=== PATIENT | female | born 1965 | race Hispanic/Latino ===

== ENCOUNTER 2017-05-24 00:05 | Observation (INO) | payer BC ==
[~2017-05-24] VITALS: Ht 160 cm; Wt 74.8 kg
[2017-05-24] MEDS ORDERED: SODIUM CHLORIDE 0.9% 1000ML 1,000 ML IV STA (00:24)
[2017-05-24] MEDS ORDERED: METOPROLOL TARTRATE INJ 1 MG/ML VIAL IV ONE (00:30)
[2017-05-24] MEDS ORDERED: METOPROLOL TARTRATE 25 MG TAB PO ONE (00:30)
[2017-05-24 01:14] LABS: BASOPHILS # (AUTO) 0.1 (0.0-0.1); BASOPHILS % 0.9 % (0.0-1.0); BILIRUBIN,URINE NEGATIVE (NEGATIVE); EOSINOPHILS # (AUTO) 0.2 (0.0-0.4); EOSINOPHILS % 1.9 % (0.0-6.0); HEMATOCRIT 46.1 % (34.2-44.1); HEMOGLOBIN 15.1 g/dL (12.0-16.0); KETONES,URINE NEGATIVE (NEGATIVE); LEUKOCYTE ESTERASE ,URINE TRACE (NEGATIVE); LYMPHOCYTES # (AUTO) 2.8 (1.0-3.2); LYMPHOCYTES % 35.8 % (18.0-39.1); MEAN CORPUSCULAR HEMOGLOBIN 27.1 pg (28-32); MEAN CORPUSCULAR HGB CONC 32.8 g/dL (31-35); MEAN CORPUSCULAR VOLUME 82.6 fL (81-99); MONOCYTES # (AUTO) 0.6 (0.2-0.8); NEUTROPHILS # (AUTO) 4.2 (2.1-6.9); NEUTROPHILS % 53.1 % (38.7-80.0); NITRITE,URINE NEGATIVE (NEGATIVE); PLATELET COUNT 242 x10e3/uL (140-360); PROTEIN,URINE DIPSTICK NEGATIVE (NEGATIVE); RED BLOOD COUNT 5.58 x10e6/uL (3.6-5.1); RED CELL DISTRIBUTION WIDTH 13.2 % (11.7-14.4); URINE UROBILINOGEN 0.2 mg/dL (0.2 - 1)
[2017-05-24 01:15] LABS: CLARITY,URINE CLEAR (CLEAR); COLOR,URINE YELLOW (YELLOW)
--- NOTE | 2017-05-24 01:17 | Diagnostic Imaging Report ---
EXAM: CHEST 2 VIEWS, PA and lateral DATE: 05/24/2017 12:24 AM Time stamp on exam: 0101 hours INDICATION: Chest pain, palpitations COMPARISON: None FINDINGS: LINES/TUBES: None LUNGS: No consolidations or edema. PLEURA: No effusions or pneumothorax. HEART AND MEDIASTINUM: Normal size and contour. BONES AND SOFT TISSUES: No acute findings. IMPRESSION: No acute thoracic abnormality. Signed by: Dr. Sara Chase M.D. on 05/24/2017 1:13 AM
[2017-05-24 01:23] LABS: INR 0.8; PROTHROMBIN TIME 11.5 seconds (11.9-14.5)
[2017-05-24 01:25] LABS: BACTERIA,URINE FEW /HPF; EPITHELIAL CELLS,URINE RARE /LPF; RBC,URINE 0-5 /HPF (0-5)
[2017-05-24 01:33] LABS: ALANINE AMINOTRANSFERASE 33 IU/L (0-55); ALBUMIN 4.2 g/dL (3.5-5.0); ALKALINE PHOSPHATASE 139 IU/L (40-150); ANION GAP 14.8 mmol/L (8-16); BLOOD UREA NITROGEN 9 mg/dL (7-26); BUN/CREATININE RATIO 11 (6-25); CALCIUM 9.1 mg/dL (8.4-10.2); CARBON DIOXIDE 23 mmol/L (22-29); CHLORIDE 102 mmol/L (98-107); CREATINE KINASE 121 IU/L (29-168); CREATININE, SERUM 0.82 mg/dL (0.57-1.11); EST GLOMERULAR FILTRATION RATE > 60 ML/MIN (60-); GLUCOSE 157 mg/dL (74-118); MAGNESIUM 2.3 MG/DL (1.3-2.1); SODIUM 137 mmol/L (136-145)
[2017-05-24 01:38] LABS: POTASSIUM 2.8 mmol/L (3.5-5.1)
[2017-05-24] MEDS ORDERED: POTASSIUM CHLORIDE 20 MEQ TAB CR PO STA (01:44)
[2017-05-24] MEDS ORDERED: KCL 20MEQ/.9 SOD CHL 1,000 ML IV ONE (01:45)
[2017-05-24] MEDS ORDERED: SODIUM CHLORIDE 0.9% 50ML 50 ML ONE (01:49)
[2017-05-24] MEDS ORDERED: IOPAMIDOL 370 MG/ML 200 ML INFUS..BTL INJ ONE (01:49)
[2017-05-24 01:53] LABS: TROPONIN I 0.008 ng/mL (0-0.300)
--- NOTE | 2017-05-24 02:35 | Diagnostic Imaging Report ---
EXAM: CT CHEST W DATE: 05/24/2017 1:33 AM Time stamp on exam: 0156 hours INDICATION: Tachycardia, chest pain COMPARISON: None TECHNIQUE: Multidetector CT scanning of the chest was performed. Coronal and sagittal multiplanar reformations were obtained. PE protocol performed. IV Contrast: 60 cc Isovue-370 CTDIvol has been reviewed. It is below the limits set by the Radiation Protocol Committee (RPC). FINDINGS: LUNGS AND AIRWAYS: The trachea and major bronchi are unremarkable. No consolidations or edema. PLEURA: No effusions or pneumothorax. HEART, MEDIASTINUM, VESSELS: Normal appearance. No evidence of a pulmonary embolism. UPPER ABDOMEN: Incidental gallstone. MUSCULOSKELETAL: Several nonspecific bilateral well-circumscribed breast nodules. For example: * Oval 8 mm nodule in the left upper breast. * Peripherally calcified 1 cm nodule in the left lateral breast. * Partially visualized 1 cm oval nodule in the posterior lateral right breast. * Nonspecific 6 mm nodule in the middle of the right breast. * Oval 1 cm nodule medial aspect of the left breast. Given there multiplicity and bilaterality, these are likely benign and intramammary lymph nodes. No suspicious bone lesions. IMPRESSION: No evidence of a pulmonary embolism. No acute thoracic abnormality. Signed by: Dr. Sara Chase M.D. on 05/24/2017 2:31 AM
[2017-05-24] MEDS ORDERED: CEFTRIAXONE SOD 1 GM VIAL IV SCH (04:00)
[2017-05-24] MEDS ORDERED: ONDANSETRON HCL INJ 2 MG/ML VIAL IV PRN (04:15)
[2017-05-24] MEDS ORDERED: POTASSIUM CHLORIDE 20MEQ/15ML UDC PO ONE (05:45)
[2017-05-24] MEDS ORDERED: POTASSIUM CHLORIDE 20 MEQ TAB CR PO ONE (06:00)
[2017-05-24 08:16] LABS: BASOPHILS # (AUTO) 0.1 (0.0-0.1); BASOPHILS % 0.7 % (0.0-1.0); EOSINOPHILS # (AUTO) 0.1 (0.0-0.4); EOSINOPHILS % 1.2 % (0.0-6.0); HEMOGLOBIN 13.9 g/dL (12.0-16.0); LYMPHOCYTES # (AUTO) 1.8 (1.0-3.2); LYMPHOCYTES % 26.9 % (18.0-39.1); MEAN CORPUSCULAR HEMOGLOBIN 27.4 pg (28-32); MEAN CORPUSCULAR HGB CONC 33.1 g/dL (31-35); MEAN CORPUSCULAR VOLUME 82.8 fL (81-99); MONOCYTES # (AUTO) 0.5 (0.2-0.8); MONOCYTES % 8.1 % (4.4-11.3); NEUTROPHILS # (AUTO) 4.2 (2.1-6.9); PLATELET COUNT 255 x10e3/uL (140-360); RED BLOOD COUNT 5.07 x10e6/uL (3.6-5.1); RED CELL DISTRIBUTION WIDTH 13.2 % (11.7-14.4)
[2017-05-24 08:35] LABS: TROPONIN I 0.001 ng/mL (0-0.300)
[2017-05-24 08:40] LABS: ANION GAP 11.1 mmol/L (8-16); BLOOD UREA NITROGEN 5 mg/dL (7-26); BUN/CREATININE RATIO 7 (6-25); CALCIUM 8.1 mg/dL (8.4-10.2); CARBON DIOXIDE 23 mmol/L (22-29); CHLORIDE 111 mmol/L (98-107); CREATININE, SERUM 0.67 mg/dL (0.57-1.11); EST GLOMERULAR FILTRATION RATE > 60 ML/MIN (60-); GLUCOSE 109 mg/dL (74-118); POTASSIUM 4.1 mmol/L (3.5-5.1); SODIUM 141 mmol/L (136-145)
[2017-05-24] MEDS ORDERED: AMLODIPINE BESYLATE 10 MG TAB PO SCH (09:00)
[2017-05-24] MEDS ORDERED: ASPIRIN 81 MG ENTERIC COATED PO SCH (09:00)
[2017-05-24] MEDS ORDERED: FAMOTIDINE 20 MG/2 ML VIAL IV SCH (09:00)
[2017-05-24] MEDS: METOPROLOL TARTRATE 25 MG TAB PO SCH ×2 (09:35→16:43)
[2017-05-24] MEDS: FAMOTIDINE 20 MG TAB PO SCH ×2 (09:35→16:43)
[2017-05-24] MEDS ORDERED: AMLODIPINE BESY10 MG PO (09:41)
[2017-05-24 14:50] VITALS: BP 140/80
[2017-05-24 14:54] VITALS: BP 140/80
[2017-05-24 17:18] LABS: CREATINE KINASE MB 0.8 ng/mL (0.00-5.00); TROPONIN I 0.007 ng/mL (0-0.300)
[2017-05-24] MEDS ORDERED: POTASSIUM CHLO20 ME1 PO (18:56)
[2017-05-24] MEDS ORDERED: PEPCID20 MG PO (18:56)
[2017-05-24] MEDS ORDERED: HYDROCHLOROTHIA25 MG PO (18:56)
[2017-05-24] MEDS ORDERED: METOPROLOL TART25 MG PO (18:56)
[2017-05-24 19:45] VITALS: BP 126/65
--- NOTE | 2017-05-24 20:47 | History and Physical ---
SHORTSTAY SUMMARY PRIMARY CARE PROVIDER: Dr. Hernandez at the [facility]. ADMITTING DIAGNOSES 1. Chest pain. 2. Palpitations. 3. Hypokalemia. 4. Hypertension. 5. History of colon cancer. DISCHARGE DIAGNOSES 1. Chest pain. 2. Palpitations. 3. Hypokalemia. 4. Hypertension. 5. History of colon cancer. 6. Myocardial infarction ruled out. BRIEF HISTORY: Ms. Doyle is a 52-year-old lady presenting with 1 day of chest pain and palpitations and uncomfortable feeling in her chest with the palpitations with some shortness of breath and some dizziness and lightheaded associated with the palpitations as well, lasting one day. She denies diaphoresis or loss of consciousness. REVIEW OF SYSTEMS: She denies fever, chills or weight loss. She denies sinus congestion or sore throat. She had chest discomfort and palpitations as noted. She had some shortness of breath as noted as well. She denies wheezing or cough. She denies abdominal pain, nausea, vomiting or melena. She denied dysuria or flank pain. Denies rash or pruritus. Denies joint pain or swelling. She denies bleeding or bruising. She denies headache, vertigo or loss of consciousness. She did have some lightheadedness and dizzy feeling. She denied depression, agitation, homicidal or suicidal ideation. PAST MEDICAL HISTORY: Significant for longstanding hypertension, or actually she was diagnosed a couple years ago and started on amlodipine 10 mg daily, which is her only medication. She also has a history of colon cancer and has had a partial colon resection and colostomy formation about 12 years ago. ALLERGIES: NO KNOWN DRUG ALLERGIES. FAMILY HISTORY: Significant for hypertension. SOCIAL HISTORY: The patient is but she is bilingual, speaks good Upper Sorbian. She is . Her is here with her. She does not smoke, drink or use illegal drugs. She is generally independently functioning. PHYSICAL EXAM: PSYCHIATRIC: She is alert and oriented times 3 with normal mood and affect. CONSTITUTIONAL: She has a normal body habitus. Is in no acute distress. VITAL SIGNS: Blood pressure 140/80. Pulse 83 and regular. Respiratory rate 20. O2 sat 97% on room air. Temperature 97.5. HEENT: Head is atraumatic. Eyes are anicteric with clear conjunctivae. Ears and nares are without erythema or discharge. Oropharynx is clear. NECK: Is supple with no mass or thyromegaly. LYMPHATIC SYSTEM: She has no palpable cervical, axillary or inguinal adenopathy. CARDIOVASCULAR: Her heart has a regular rate and rhythm without murmurs or extra heart sounds. She has no carotid bruit. She has no peripheral edema. She has weak dorsal pedal pulses. RESPIRATORY: Clear to auscultation and percussion with normal respiratory effort. GASTROINTESTINAL: Abdomen is soft without organomegaly, masses or tenderness. Normal bowel sounds present. She has a colostomy in place that is functioning well. CUTANEOUS: Her skin is warm and dry to touch with no rash or skin breakdown. MUSCULOSKELETAL: Joints are normal alignment without erythema or swelling. Has no calf tenderness. NEUROLOGIC: Exam is nonfocal with intact cranial nerves and no motor or sensory deficits. DIAGNOSTIC STUDIES: Chest x-ray shows no acute disease. CT of the chest also no acute disease, no evidence of pulmonary edema that was done for an elevated D-dimer. Her echocardiogram shows LVH and ejection fraction of 62%. Hemoglobin A1c level 5.6. Troponin 0.008, 0.001, 0.007. BNP less than 10. CBC shows a white count 7.83 with normal differential. Hemoglobin 15.1, hematocrit 46.1 and platelet count of 242,000. Chemistry shows normal electrolytes except potassium of 2.8. CO2 is 23. Glucose 157. Creatinine 0.82. BUN 9 for normal GFR. Calcium 9.1. Magnesium 2.3. TSH is 2.140. Transaminases, bilirubin and alkaline phos are normal. Coags are normal. IMPRESSION AND PLAN 1. Chest pain, rule out acute coronary syndrome. Serial cardiac enzymes are negative so far. EKG is not exactly normal but does not show any acute ischemic changes. 2. Hypokalemia which has resolved and corrected with p.o. potassium. 3. Palpitations which are better now after starting metoprolol yesterday. 4. Hypertension, also better with the addition of metoprolol.. The patient remains on amlodipine which she states causes some ankle swelling at the end of the day and so will add hydrochlorothiazide and will schedule potassium chloride for the patient to take to prevent hypokalemia again. 5. For prophylaxis the patient is on Pepcid for GI prophylaxis. HOSPITAL COURSE: Patient was admitted to the floor for observation and serial cardiac enzymes negative for myocardial injury. Patient was feeling better at the time of discharge and she was sent home to resume her amlodipine with the addition of metoprolol 25 twice a day, hydrochlorothiazide 25 daily. Potassium 20 mEq daily and Pepcid 20 mg twice daily before meals. The patient will resume a regular diet and activity as tolerated and follow up with her primary care provider within 2 weeks. Job#: [id number]
== END 2017-05-24 19:49 | disposition home or self-care (01) ==
LOC: ER 00:05 → ERHOLD 05:09 → IMCU 13:25
PROVIDERS: ADMIT Internal Medicine; ATTEND Internal Medicine
DX: R07.89 Other chest pain (principal); R00.2 Palpitations; E87.6 Hypokalemia; I10 Essential (primary) hypertension; Z85.038 Personal history of other malignant neoplasm of large intestine
CPT/HCPCS: 36415; 71020; 71260; 80048; 80053; 81001; 82550; 82553; 83036; 83735; 83880; 84443; 84484; 85025; 85379; 85610; 85730; 87086; 93005; 93306; 99284; G0378; J7030; Q9967; 71046

== ENCOUNTER 2018-02-02 13:11 | Observation (INO) | payer BC ==
[~2018-02-02] VITALS: Ht 160 cm; Wt 74.0 kg
[~2018-02-02 13:11] MED LIST: AMLODIPINE BESY10 MG PO; HYDROCHLOROTHIA25 MG PO; METOPROLOL TART25 MG PO; PEPCID20 MG PO; POTASSIUM CHLO20 ME1 PO
[2018-02-02] MEDS ORDERED: ASPIRIN 81 MG CHEW TAB PO ONE (13:30)
[2018-02-02 14:08] LABS: BASOPHILS # (AUTO) 0.1 (0.0-0.1); EOSINOPHILS # (AUTO) 0.1 (0.0-0.4); EOSINOPHILS % 1.1 % (0.0-6.0); HEMOGLOBIN 14.7 g/dL (12.0-16.0); LYMPHOCYTES # (AUTO) 1.3 (1.0-3.2); LYMPHOCYTES % 24.3 % (18.0-39.1); MEAN CORPUSCULAR HEMOGLOBIN 27.4 pg (28-32); MEAN CORPUSCULAR HGB CONC 33.4 g/dL (31-35); MEAN CORPUSCULAR VOLUME 82.1 fL (81-99); MONOCYTES # (AUTO) 0.5 (0.2-0.8); MONOCYTES % 8.6 % (4.4-11.3); NEUTROPHILS # (AUTO) 3.4 (2.1-6.9); NEUTROPHILS % 64.6 % (38.7-80.0); PLATELET COUNT 272 x10e3/uL (140-360); RED BLOOD COUNT 5.36 x10e6/uL (3.6-5.1); RED CELL DISTRIBUTION WIDTH 13.2 % (11.7-14.4)
--- NOTE | 2018-02-02 14:11 | Diagnostic Imaging Report ---
EXAMINATION: CHEST SINGLE (PORTABLE) INDICATION: High blood pressure. Chest pressure COMPARISON: May 24, 2017 FINDINGS: TUBES and LINES: None. LUNGS: Lungs are well inflated. Lungs are clear. There is no evidence of pneumonia or pulmonary edema. PLEURA: No pleural effusion or pneumothorax. HEART AND MEDIASTINUM: The cardiomediastinal silhouette is unremarkable. BONES AND SOFT TISSUES: No acute osseous lesion. Soft tissues are unremarkable. UPPER ABDOMEN: No free air under the diaphragm. IMPRESSION: No acute thoracic abnormality. Signed by: Dr. Jakob Layton M.D. on 02/02/2018 2:08 PM
[2018-02-02] MEDS ORDERED: CETIRIZINE HCL10 MG PO (14:15)
[2018-02-02] MEDS ORDERED: XYZAL5 MG PO (14:15)
[2018-02-02 14:22] LABS: INR 0.8; PROTHROMBIN TIME 11.9 seconds (11.9-14.5)
[2018-02-02 14:30] LABS: ALANINE AMINOTRANSFERASE 39 IU/L (0-55); ALBUMIN 4.1 g/dL (3.5-5.0); ALBUMIN/GLOBULIN RATIO 1.1 (0.8-2.0); ALKALINE PHOSPHATASE 114 IU/L (40-150); ANION GAP 14.1 mmol/L (8-16); BLOOD UREA NITROGEN 9 mg/dL (7-26); BUN/CREATININE RATIO 13 (6-25); CALCIUM 9.3 mg/dL (8.4-10.2); CARBON DIOXIDE 25 mmol/L (22-29); CHLORIDE 103 mmol/L (98-107); CREATINE KINASE 94 IU/L (29-168); CREATININE, SERUM 0.72 mg/dL (0.57-1.11); EST GLOMERULAR FILTRATION RATE > 60 ML/MIN (60-); GLUCOSE 113 mg/dL (74-118); POTASSIUM 3.1 mmol/L (3.5-5.1); SODIUM 139 mmol/L (136-145)
[2018-02-02 17:35] VITALS: BP 126/71
[2018-02-02 17:38] VITALS: BP 126/71
[2018-02-02 17:51] VITALS: BP 126/71
[2018-02-02 20:07] VITALS: BP 113/64
[2018-02-02 22:22] VITALS: BP 113/64
[2018-02-03] VITALS: BP 118/64
--- NOTE | 2018-02-03 01:03 | Consultation ---
DATE OF CONSULTATION: February 02, 2018 CARDIOLOGY CONSULTATION REASON FOR CONSULTATION: Chest pain. HISTORY OF PRESENT ILLNESS: This is a 53-year-old woman with history of hypertension and stage-II colorectal cancer, status post partial colectomy with colostomy and chemotherapy and radiation, who presents with complaints of chest tightness and shortness of breath. She reports she began feeling off on Tuesday. She described chest tightness associated with shortness of breath starting this time, as well the pain was 1-2/10 in severity and it occurred intermittently. She denies any palpitations, radiation, nausea or diaphoresis. She has not had any orthopnea or PND, but does endorse left lower extremity swelling for approximately the last month. The patient continued to have symptoms. Today, when she checked her blood pressure, she noted that her blood pressure was in the 190s-200s systolic. On calling her PCP, she was instructed to present to the emergency room for further evaluation. REVIEW OF SYSTEMS: Negative except as per HPI. PAST MEDICAL HISTORY 1. Hypertension. 2. Stage-II colorectal cancer, status post partial colectomy with colostomy, chemotherapy, and radiation. 3. Sleep apnea. PAST SURGICAL HISTORY: As above. ALLERGIES: NO KNOWN DRUG ALLERGIES. MEDICATIONS: Please see medication list. SOCIAL HISTORY: Denies tobacco, alcohol or illicit drugs. FAMILY HISTORY: Denies family history of heart disease. PHYSICAL EXAM VITAL SIGNS: Temperature 98.4 degrees, pulse 77, respiratory rate 20, blood pressure 113/54, oxygen saturation 98% on 2 L nasal cannula. GENERAL: Well-developed, well-nourished woman, no acute distress. HEENT: Normocephalic, atraumatic. Pupils equal. No scleral icterus. NECK: Supple. No thyromegaly or cervical lymphadenopathy, no carotid bruits. LUNGS: Clear to auscultation bilaterally. No wheezes or crackles. CARDIOVASCULAR: Normal rate, regular rhythm. No murmur. Normal S1, S2. ABDOMEN: Soft, nontender. EXTREMITIES: No edema. LABS: WBC 5.26, hemoglobin 14.7, hematocrit 44, platelets 272,000. Sodium 139, potassium 3.1, chloride 103, CO2 25, BUN 9, creatinine 0.72. Troponin less than 0.001. BNP 13.4. CHEST X-RAY: No acute thoracic abnormality. EKG: Normal sinus rhythm. Right superior axis deviation pulmonary disease pattern. Right ventricular hypertrophy. IMPRESSIONS 1. Chest pain. 2. Dyspnea. 3. Hypertension. 4. History of colorectal cancer, status post partial colectomy and colostomy. RECOMMENDATIONS: Trend cardiac enzymes to rule out myocardial infarction. Obtain echocardiogram. Given risk factors, we will proceed with exercise treadmill stress test in a.m. Monitor patient on telemetry. Further recommendations pending test results. Thank you for this consult. We will continue to follow. Job#: [id number] CQ
[2018-02-03 01:54] LABS: CREATINE KINASE 90 IU/L (29-168)
[2018-02-03 04:00] VITALS: BP 109/58
[2018-02-03 05:37] LABS: CREATINE KINASE 81 IU/L (29-168)
[2018-02-03 07:19] LABS: CHOL/HDL RATIO 5.4 (3.0-3.6)
[2018-02-03] MEDS ORDERED: POTASSIUM CHLORIDE 20 MEQ TAB CR PO STA (08:07)
[2018-02-03 08:25] VITALS: BP 112/60
[2018-02-03] MEDS ORDERED: REGADENOSON 0.4 MG/5 ML SYR IV ONE (12:12)
--- NOTE | 2018-02-03 13:17 | Progress Note ---
DATE: February 03, 2018 CARDIOLOGY PROGRESS NOTE SUBJECTIVE: The patient denies chest pain or shortness of breath. OBJECTIVE VITAL SIGNS: Temperature 97.2 degrees, pulse 75, respiratory rate 19, blood pressure 112/60, oxygen saturation 94% on 2 liters nasal cannula. GENERAL: Awake, alert, in no acute distress. LUNGS: Clear to auscultation bilaterally. No wheezes or crackles. CARDIOVASCULAR: Normal rate, regular rhythm. No murmur. Normal S1, S2. ABDOMEN: Soft, nontender. EXTREMITIES: No edema. CARDIAC MEDICATIONS: Amlodipine 10 mg p.o. daily. LABS: Troponin less than 0.001. Cholesterol 220, triglycerides 288, LDL 121, HDL 41. TELEMETRY: Normal sinus rhythm. IMPRESSION 1. Chest pain. 2. Dyspnea. 3. Hypertension. 4. History of colorectal cancer, status post partial colectomy and colostomy. RECOMMENDATIONS: The patient ruled out for myocardial infarction with serial cardiac biomarkers. Echocardiogram is pending. Given risk factors, nuclear stress test was performed. Further recommendations following image results. Start the patient on atorvastatin, given elevated LDL. Resume home cardiac medications. Monitor the patient on telemetry. Thank you for this consult. We will continue to follow. Job#: [id number]
[2018-02-03 16:45] VITALS: BP 129/72
[2018-02-03 19:15] VITALS: BP 114/59
--- NOTE | 2018-02-03 19:42 | Cardiology Report ---
DATE OF STUDY: February 03, 2018 NUCLEAR STRESS TEST REPORT PROCEDURE: Rest/stress single-isotope SPECT imaging with exercise stress and gated SPECT imaging. INDICATION: Chest pain. PROCEDURE: The patient performed treadmill exercise using a Marcel protocol, exercising for 5 minutes 1 second to stage 2 and completing estimated work load of 7 metabolic equivalents (METs). The test was terminated due to fatigue. The heart rate was 92 beats per minute at rest and increased to 161 beats per minute at peak exercise, which was 96% of the maximum predicted heart rate. The rest blood pressure was 133/81 mmHg and increased to 157/86 mmHg, which is a normal response. The patient did not develop any symptoms other than fatigue during the procedure. The resting electrocardiogram demonstrated normal sinus rhythm. There were no ST segment changes consistent with myocardial ischemia. Myocardial perfusion imaging was performed at rest following the injection of 11 mCi of tetrofosmin. At peak exercise, the patient was injected with 34 mCi of tetrofosmin and exercise was continued for 1 minute. Gated post rest tomographic imaging was performed. FINDINGS: The overall quality of study is fair. Left ventricular cavity is noted to be normal size on the rest and stress images. SPECT images demonstrate homogenous tracer distribution throughout the myocardium. Gated SPECT imaging reveals normal myocardial thickening and wall motion. The left ventricular ejection fraction was calculated to be greater than 70%. IMPRESSION: Normal clinical hemodynamic and ECG exercise treadmill stress test. Myocardial perfusion imaging is normal. Overall left ventricular systolic function was normal without regional wall motion abnormalities. Job#: [id number] RTY cc:DR. MIKE FRAZIER
[2018-02-03 20:00] VITALS: BP 114/59
[2018-02-03] MEDS ORDERED: ATORVASTATIN 20 MG TAB PO SCH (21:00)
[2018-02-04] MEDS ORDERED: ASPIRIN 81 MG ENTERIC COATED PO SCH (09:00)
[2018-02-04] MEDS ORDERED: AMLODIPINE BESYLATE 10 MG TAB PO SCH (09:00)
--- OUTSIDE RECORDS SUMMARY | 2018-02-07 13:04 | XMS REPORT ---
Author Author [facility] Address Unknown Phone Unavailable Care Team Providers Care Parent Aide Name Role Phone Adriana BULL HUMBERTOPIPER Unavailable Unavailable SWEET, Kathy LAIRD Unavailable Unavailable Problems This patient has no known problems. Allergies, Adverse Reactions, Alerts This patient has no known allergies or adverse reactions. Medications This patient has no known medications. Results Test Description Test Time Test Comments Text Results Atomic Results Result Comments CHEST SINGLE (PORTABLE) 2018-02-02 14:07:00 [place] [address] Patient Name: CARLOS CALLOWAY MR #: [id number] : 1965 Age/Sex: 53/F Req #: [id number] Adm Physician: Ordered by: INGE PIERRE RULING MACHINE SET UP OPERATOR Report #: [id number] Location: ER Room/Bed: Procedure: [id number] DX/CHEST SINGLE (PORTABLE) Exam Date: 02/02/18 Exam Time: 1355 REPORT STATUS: Signed EXAMINATION: CHEST SINGLE (PORTABLE) INDICATION: High blood pressure. Chest pressure COMPARISON: May 24, 2017 FINDINGS: TUBES and LINES: None. LUNGS: Lungs are well inflated. Lungs are clear. There is no evidence of pneumonia or pulmonary edema. PLEURA: No pleural effusion or pneumothorax. HEART AND MEDIASTINUM: The cardiomediastinal silhouette is unremarkable. BONES AND SOFT TISSUES: No acute osseous lesion. Soft tissues are unremarkable. UPPER ABDOMEN: No free air under the diaphragm. IMPRESSION: No acute thoracic abnormality. Signed by: Dr. Teri Layton M.D. on 02/02/2018 2:08 PM Dictated By: TERI LAYTON MD, MD 07 Transcribed By: BRAULIO on 02/02/181407 COPY TO: INGE PIERRE RULING MACHINE SET UP OPERATOR CT CHEST W [place] [address] Patient Name: CARLOS CALLOWAY MR #: [id number] : 1965 Age/Sex: 52/F Req #: [id number] Adm Physician: Ordered by: YAMILE LAM MD Report #: [id number] Location: ER Room/Bed: Procedure: [id number] CT/CT CHEST W Exam Date: Exam Time: REPORT STATUS: Signed EXAM: CT CHEST W DATE: 05/24/2017 1:33 AM Time stamp on exam: 0156 hours INDICATION: Tachycardia, chest pain COMPARISON: None TECHNIQUE: Multidetector CT scanning of the chest was performed. Coronal and sagittal multiplanar reformations were obtained. PE protocol performed. IV Contrast: 60 cc Isovue- 370 CTDIvol has been reviewed. It is below the limits set by the Radiation Protocol Committee (RPC). FINDINGS: LUNGS AND AIRWAYS: The trachea and major bronchi are unremarkable. No consolidations or edema. PLEURA: No effusions or pneumothorax. HEART, MEDIASTINUM, VESSELS: Normal appearance. No evidence of a pulmonary embolism. UPPER ABDOMEN: Incidental gallstone. MUSCULOSKELETAL: Several nonspecific bilateral well-circumscribed breast nodules. For example: * Oval 8 mm nodule in the left upper breast. * Hortencia pherally calcified 1 cm nodule in the left lateral breast. * Partially visualized 1 cm oval nodule in the posterior lateral right breast. * Nonspecific 6 mm nodule in the middle of the right breast. * Oval 1 cm nodule medial aspect of the left breast. Given there multiplicity and bilaterality, these are likely benign and intramammary lymph nodes. No suspicious bone lesions. IMPRESSION: No evidence of a pulmonary embolism. No acute thoracic abnormality. Signed by: Dr. Clifton Chase M.D. on 05/24/2017 2:31 AM Dictated By: CLIFTON CHASE MD 0 Transcribed By: BRAULIO on 05/24/17230 COPY TO: YAMILE LAM MD CHEST 2 VIEWS [place] [address] Patient Name: CARLOS CALLOWAY MR #: [id number] : 1965 Age/Sex: 52/F Req #: [id number] Adm Physician: Ordered by: YAMILE LAM MD Report #: [id number] Location: ER Room/Bed: Procedure: [id number] DX/CHEST 2 VIEWS Exam Date: 05/24/17 Exam Time: 0100 REPORT STATUS: Signed EXAM: CHEST 2 VIEWS, PA and lateral DATE: 05/24/2017 12:24 AM Time stamp on exam: 0101 hours INDICATION: Chest pain, palpitations COMPARISON: None FINDINGS: LINES/TUBES: None LUNGS: No consolidations or edema. PLEURA: No effusions or pneumothorax. HEART AND MEDIASTINUM: Normal size and contour. BONES AND SOFT TISSUES: No acute findings. IMPRESSION: No acute thoracic abnormality. Signed by: Dr. Clifton Chase M.D. on 05/24/2017 1:13 AM Dictated By: CLIFTON CHASE MD 2 Transcribed By: BRAULIO on 05/24/17112 COPY TO: YAMILE LAM MD
--- NOTE | 2018-04-21 16:47 | Discharge Summary ---
Ms. Doyle is a 53-year-old female with a history of hypertension. Came to the emergency room complaining of chest pain and shortness of breath. She was seen by energy administrator. PHYSICAL EXAMINATION GENERAL: She was awake and alert. VITALS: Temperature is 97.4, blood pressure 107/58. HEART: Regular rate. LUNGS: Clear to auscultation. ABDOMEN: Soft. Chest x-ray negative. Cardiac enzymes negative. She had a nuclear stress test that came back negative. DISCHARGE DIAGNOSES 1. Atypical chest pain. 2. Uncontrolled hypertension. 3. Dyspnea. 4. History of colon cancer. Since the workup was negative, the patient was discharged home to follow up with her PCP and to take medications as directed. She was to call me or come back to the emergency room if any recurrent problem. Job#: [id number] ASHLEY
== END 2018-02-03 21:44 | disposition home or self-care (01) ==
LOC: ER 13:11 → ERHOLD 15:34 → IMCU 17:36
PROVIDERS: ADMIT Internal Medicine; ATTEND Internal Medicine
DX: R07.9 Chest pain, unspecified (principal); R06.00 Dyspnea, unspecified; I10 Essential (primary) hypertension; Z85.038 Personal history of other malignant neoplasm of large intestine; Z93.3 Colostomy status
CPT/HCPCS: 36415; 71045; 78452; 80053; 80061; 82550 ×2; 82553 ×2; 83880; 84484 ×2; 85025; 85610; 85730; 93005; 93017; 93970; 99284; A9502; G0378 ×2

== ENCOUNTER 2018-06-17 03:00 | Emergency (ER) | payer BC ==
[~2018-06-17] VITALS: Ht 160 cm; Wt 70.3 kg
[~2018-06-17 03:00] MED LIST changes: +CETIRIZINE HCL10 MG PO; +XYZAL5 MG PO
[2018-06-17] MEDS ORDERED: LORAZEPAM 1 MG TAB PO ONE (05:15)
== END 2018-06-17 05:17 | disposition home or self-care (01) ==
LOC: FSED 03:00
DX: R09.89 Other specified symptoms and signs involving the circulatory and respiratory systems (principal); F41.1 Generalized anxiety disorder; Z85.038 Personal history of other malignant neoplasm of large intestine; Z98.0 Intestinal bypass and anastomosis status; Z93.3 Colostomy status
CPT/HCPCS: 99282

== ENCOUNTER 2018-07-07 13:46 | Emergency (ER) | payer BC ==
[~2018-07-07] VITALS: Ht 160 cm; Wt 70.3 kg
[2018-07-07] MEDS ORDERED: CITALOPRAM HBR10 MG PO (14:21)
[2018-07-07] MEDS ORDERED: RANITIDINE HCL150 MG PO (14:21)
[2018-07-07] MEDS ORDERED: OMEPRAZOLE40 MG PO (14:21)
[2018-07-07] MEDS ORDERED: SODIUM CHLORIDE 0.9% 1000ML 1,000 ML IV STA (14:45)
[2018-07-07 15:25] LABS: BASOPHILS % 0.4 % (0.0-1.0); HEMATOCRIT 46.4 % (34.2-44.1); HEMOGLOBIN 15.6 g/dL (12.0-16.0); LYMPHOCYTES # (AUTO) 1.2 (1.0-3.2); LYMPHOCYTES % 15.6 % (18.0-39.1); MEAN CORPUSCULAR HEMOGLOBIN 27.5 pg (28-32); MEAN CORPUSCULAR HGB CONC 33.6 g/dL (31-35); MEAN CORPUSCULAR VOLUME 81.8 fL (81-99); MONOCYTES # (AUTO) 0.5 (0.2-0.8); MONOCYTES % 6.5 % (4.4-11.3); NEUTROPHILS # (AUTO) 5.9 (2.1-6.9); NEUTROPHILS % 77.4 % (38.7-80.0); PLATELET COUNT 299 x10e3/uL (140-360); RED BLOOD COUNT 5.67 x10e6/uL (3.6-5.1); RED CELL DISTRIBUTION WIDTH 13.7 % (11.7-14.4)
[2018-07-07 15:47] LABS: ALANINE AMINOTRANSFERASE 141 IU/L (0-55); ALBUMIN 4.1 g/dL (3.5-5.0); ALBUMIN/GLOBULIN RATIO 1.1 (0.8-2.0); ALKALINE PHOSPHATASE 126 IU/L (40-150); ANION GAP 14.3 mmol/L (8-16); BILIRUBIN,URINE NEGATIVE (NEGATIVE); BLOOD UREA NITROGEN 5 mg/dL (7-26); BUN/CREATININE RATIO 6 (6-25); CALCIUM 9.2 mg/dL (8.4-10.2); CARBON DIOXIDE 26 mmol/L (22-29); CHLORIDE 102 mmol/L (98-107); CLARITY,URINE HAZY (CLEAR); COLOR,URINE YELLOW (YELLOW); CREATINE KINASE 42 IU/L (29-168); EST GLOMERULAR FILTRATION RATE > 60 ML/MIN (60-); GLUCOSE 114 mg/dL (74-118); KETONES,URINE NEGATIVE (NEGATIVE); LEUKOCYTE ESTERASE ,URINE NEGATIVE (NEGATIVE); LIPASE 32 U/L (8-78); MAGNESIUM 2.5 MG/DL (1.3-2.1); NITRITE,URINE NEGATIVE (NEGATIVE); POTASSIUM 3.3 mmol/L (3.5-5.1); PROTEIN,URINE DIPSTICK TRACE (NEGATIVE); SODIUM 139 mmol/L (136-145); URINE UROBILINOGEN 0.2 mg/dL (0.2 - 1)
[2018-07-07 15:48] LABS: BACTERIA,URINE MODERATE /HPF; EPITHELIAL CELLS,URINE FEW /LPF; RBC,URINE 0-5 /HPF (0-5); WBC,URINE (MAN) 0-5 /HPF (0-5)
[2018-07-07 16:09] LABS: THYROID STIMULATING HORMONE 0.681 uIU/mL (0.350-4.940)
[2018-07-07 16:55] LABS: AMPHETAMINES SCREEN,URINE NEGATIVE (NEGATIVE); BENZODIAZEPINES SCREEN,URINE POSITIVE (NEGATIVE); PHENCYCLIDINE SCREEN,URINE NEGATIVE (NEGATIVE)
[2018-07-07 16:59] LABS: ACETAMINOPHEN < 3 ug/mL (10-30); SALICYLATE < 5.0 mg/dL (0-30)
[2018-07-07] MEDS ORDERED: POTASSIUM CHLORIDE 20 MEQ TAB CR PO ONE (17:30)
--- NOTE | 2018-07-07 17:44 | Diagnostic Imaging Report ---
EXAMINATION: CHEST SINGLE (PORTABLE) INDICATION: Cough. COMPARISON: Chest x-ray 02/02/2018. CT chest 05/24/2017. FINDINGS: AP view TUBES and LINES: None. LUNGS: Lungs are well inflated. Bilateral peribronchial cuffing. There is no evidence of pneumonia or pulmonary edema. PLEURA: No pleural effusion or pneumothorax. HEART AND MEDIASTINUM: The cardiomediastinal silhouette is unremarkable. BONES AND SOFT TISSUES: No acute osseous lesion. Soft tissues are unremarkable. UPPER ABDOMEN: No free air under the diaphragm. IMPRESSION: Bilateral peribronchial cuffing, which could represent viral etiology or reactive airway disease. Signed by: Dr. Som Jha M.D. on 07/07/2018 5:40 PM
[2018-07-07 18:01] VITALS: BP 137/83
== END 2018-07-07 18:35 | disposition home or self-care (01) ==
LOC: ER 13:46
DX: F32.0 Major depressive disorder, single episode, mild (principal); I10 Essential (primary) hypertension; K21.9 Gastro-esophageal reflux disease without esophagitis; Z85.038 Personal history of other malignant neoplasm of large intestine
CPT/HCPCS: 36415; 71045; 80053; 80307; 80320; 80329 ×2; 81001; 82550; 82553; 83690; 83735; 84443; 84484; 85025; 87086; 93005; 99284; J7030